=== PATIENT | female | born 1955 | race Caucasian/White ===

== ENCOUNTER 2018-05-09 09:52 | Emergency (ER) | payer OTHER ==
[~2018-05-09] VITALS: Ht 160 cm; Wt 70.3 kg
[2018-05-09 09:55] VITALS: BP 140/81
--- NOTE | 2018-05-09 10:04 | NUR ---
62 yo f bib grand daughter w/ c/o left 3 small toes pain since yesterday at 10am s/p "stubbing" them. pt w/ ecchymosis to the top of the foot to the 4th toe base. cms intact. ambulatory w/ 12/18 pain. -edema. hx rsd, right leg plates/screws s/p accident, hypothyroidism, high cholestrol rx levothyroxine, "cholestrol medicine"
--- NOTE | 2018-05-09 11:00 | NUR ---
PT RESTING IN BED WITH GRANDDAUGHTER AT BEDSIDE. NO S/S OF DISTRESS NOTED.
[2018-05-09 12:31] VITALS: BP 135/79
== END 2018-05-09 12:32 | disposition home or self-care (01) ==
LOC: MED 09:52
DX: S92.502A Displaced unspecified fracture of left lesser toe(s), initial encounter for closed fracture (principal); E07.9 Disorder of thyroid, unspecified; Z90.89 Acquired absence of other organs; Z98.890 Other specified postprocedural states; Z88.0 Allergy status to penicillin; Z88.5 Allergy status to narcotic agent; W22.8XXA Striking against or struck by other objects, initial encounter; Y93.89 Activity, other specified; Y92.89 Other specified places as the place of occurrence of the external cause; Y99.8 Other external cause status
CPT/HCPCS: 73660; 99283; Q0092